=== PATIENT | female | born 1995 | race Two or more races ===

== ENCOUNTER 2021-10-01 09:03 | Outpatient (CLI) | payer OTHER | END 2021-10-01 09:04 | disposition home or self-care (01) | LOC: LAB 09:03 | PROVIDERS: ATTEND Emergency Medicine | DX: Z03.818 Encounter for observation for suspected exposure to other biological agents ruled out (principal) ==

== ENCOUNTER 2021-12-26 11:43 | Emergency (ER) | payer OTHER ==
[~2021-12-26] VITALS: Ht 170.2 cm; Wt 74.8 kg
[2021-12-26] MEDS ORDERED: CIPRO500 MG PO (13:18)
[2021-12-26] MEDS ORDERED: PYRIDIUM200 MG PO (13:18)
== END 2021-12-26 20:32 | disposition home or self-care (01) ==
LOC: ER 11:43
DX: R30.0 Dysuria (principal)

== ENCOUNTER 2022-01-17 13:53 | Emergency (ER) | payer OTHER ==
[~2022-01-17] VITALS: Ht 170.2 cm; Wt 75.3 kg
[~2022-01-17 13:53] MED LIST: CIPRO500 MG PO; PYRIDIUM200 MG PO
== END 2022-01-17 16:57 | disposition home or self-care (01) ==
LOC: ER 13:53
DX: R11.10 Vomiting, unspecified (principal)

== ENCOUNTER 2022-01-26 15:36 | Emergency (ER) | payer OTHER ==
[~2022-01-26] VITALS: Ht 170.2 cm; Wt 75.3 kg
== END 2022-01-26 17:37 | disposition home or self-care (01) ==
LOC: ER 15:36
DX: A49.3 Mycoplasma infection, unspecified site (principal); U07.1 COVID-19

== ENCOUNTER 2022-04-10 06:37 | Emergency (ER) | payer OTHER ==
[~2022-04-10] VITALS: Ht 170.2 cm; Wt 73.9 kg
[2022-04-10] MEDS ORDERED: MEDROLPACK PO (09:45)
[2022-04-10] MEDS ORDERED: ZITHROMAX500 MG PO (09:45)
== END 2022-04-10 09:50 | disposition home or self-care (01) ==
LOC: ER 06:37
DX: J06.9 Acute upper respiratory infection, unspecified (principal); B34.9 Viral infection, unspecified; R50.9 Fever, unspecified; Z20.822 Contact with and (suspected) exposure to COVID-19